=== PATIENT | male | born 1950 | race African-American/Black ===

== ENCOUNTER 2017-09-26 09:44 | Emergency (ER) | payer MEDICARE ==
[2017-09-26 09:57] LABS: BASOPHILS 0.7 % (0-2); EOSINOPHILS 2.4 % (0-7); HEMATOCRIT 29.8 % (42.0-54.0); HEMOGLOBIN 10.1 g/dL (13.5-17.5); IMMATURE GRANULOCYTES 0.3 % (0-5); LYMPHOCYTES 23.4 % (15-50); MCH 33.3 pg (26.0-34.0); MCHC 33.9 g/dL (31.0-37.0); MCV 98.3 fL (80.0-100.0); MONOCYTES 10.4 % (2-11); NEUTROPHILS 62.8 % (40-80); PLATELET COUNT 390 10x3/uL (130-400); RBC 3.03 10x6/uL (4.20-6.10); RDW 13.3 % (11.5-14.5)
[2017-09-26 10:09] LABS: APTT 29.3 SECONDS (22.8-39.4); INR 1.01 (0.85-1.17); PROTIME 12.9 SECONDS (11.6-15.0)
[2017-09-26 10:16] LABS: ALBUMIN 3.6 g/dL (3.4-5.0); ANION GAP 14.7 mmol/L (8-16); BILIRUBIN - TOTAL 0.21 mg/dL (0.2-1.3); CALCIUM 9.2 mg/dL (8.5-10.1); CREATININE - SERUM 1.6 mg/dL (0.6-1.3); POTASSIUM - SERUM 3.7 mmol/L (3.5-5.1); PROTEIN - SERUM 7.9 g/dL (6.4-8.2)
== END 2017-09-26 12:26 | disposition short-term general hospital (02) ==
LOC: D.ER 09:44
PROVIDERS: Emergency Medicine
DX: I63.9 Cerebral infarction, unspecified (principal); F17.200 Nicotine dependence, unspecified, uncomplicated

== ENCOUNTER 2017-11-21 15:55 | Emergency (ER) | payer MEDICARE | END 2017-11-21 20:12 | disposition home or self-care (01) | LOC: D.ER 15:55 | DX: I95.9 Hypotension, unspecified (principal); Z86.73 Personal history of transient ischemic attack (TIA), and cerebral infarction without residual deficits ==

== ENCOUNTER 2017-12-09 20:46 | Inpatient (IN) | payer MEDICARE ==
[~2017-12-09] VITALS: Ht 170.2 cm; Wt 70.3 kg
[2017-12-09 21:20] LABS: BASOPHILS 0.4 % (0-2); EOSINOPHILS 2.5 % (0-7); HEMATOCRIT 27.9 % (42.0-54.0); HEMOGLOBIN 9.3 g/dL (13.5-17.5); IMMATURE GRANULOCYTES 0.4 % (0-5); LYMPHOCYTES 36.3 % (15-50); MCH 30.5 pg (26.0-34.0); MCHC 33.3 g/dL (31.0-37.0); MCV 91.5 fL (80.0-100.0); MEAN PLATELET VOLUME 8.6 fL (7.4-10.4); MONOCYTES 7.7 % (2-11); NEUTROPHILS 52.7 % (40-80); RBC 3.05 10x6/uL (4.20-6.10); RDW 14.1 % (11.5-14.5)
[2017-12-09 21:20] LABS: APPEARANCE CLOUDY (CLEAR); BILIRUBIN NEGATIVE (NEGATIVE); COLOR YELLOW (YELLOW); GLUCOSE NEGATIVE (NEGATIVE); KETONE NEGATIVE (NEGATIVE); NITRITE NEGATIVE (NEGATIVE); PROTEIN 2+ mg/dL (NEGATIVE); SPECIFIC GRAVITY 1.025 (1.005-1.020); UROBILINOGEN NORMAL (NORMAL)
[2017-12-09 21:21] LABS: PLATELET COUNT 510 10x3/uL (130-400)
[2017-12-09 21:26] LABS: AMORPHOUS SEDIMENT >1+ /lpf (NONE SEEN); BACTERIA MODERATE /hpf (NONE SEEN); EPITHELIAL CELLS 0-5 /hpf (0-5); GRANULAR CAST 0-5 /lpf (NONE SEEN); HYALINE CAST OCC /lpf (NONE SEEN)
[2017-12-09 21:32] LABS: ALBUMIN 3.4 g/dL (3.4-5.0); ANION GAP 24.7 mmol/L (8-16); BILIRUBIN - TOTAL 0.25 mg/dL (0.2-1.3); CALCIUM 9.7 mg/dL (8.5-10.1); CARBON DIOXIDE 16.6 mmol/L (21.0-32.0); POTASSIUM - SERUM 3.3 mmol/L (3.5-5.1); PROTEIN - SERUM 7.9 g/dL (6.4-8.2)
[2017-12-09 21:50] LABS: T4 THYROXIN - FREE 0.8 ng/dL (0.76-1.46); THYROID STIMULATING HORMONE 3.93 uIU/mL (0.36-3.74)
[2017-12-10 02:15] VITALS: BP 159/94
[2017-12-10 03:54] VITALS: BP 159/94; BMI 24.3
[2017-12-10 04:39] VITALS: BP 159/94
[2017-12-10 05:59] LABS: BASOPHILS 0.2 % (0-2); EOSINOPHILS 0 % (0-7); HEMOGLOBIN 9.4 g/dL (13.5-17.5); IMMATURE GRANULOCYTES 0.2 % (0-5); LYMPHOCYTES 8.4 % (15-50); MCH 29.8 pg (26.0-34.0); MCHC 33.6 g/dL (31.0-37.0); MEAN PLATELET VOLUME 9.3 fL (7.4-10.4); MONOCYTES 11.9 % (2-11); NEUTROPHILS 79.3 % (40-80); PLATELET COUNT 498 10x3/uL (130-400); RBC 3.15 10x6/uL (4.20-6.10)
[2017-12-10 06:01] LABS: MCV 88.9 fL (80.0-100.0)
[2017-12-10 06:10] LABS: ANION GAP 17.7 mmol/L (8-16); CREATININE - SERUM 1.8 mg/dL (0.6-1.3); POTASSIUM - SERUM 3.7 mmol/L (3.5-5.1)
[2017-12-10 09:52] VITALS: BP 152/112
[2017-12-10] MEDS ORDERED: LIPITOR40 MG PO (10:06)
[2017-12-10] MEDS ORDERED: PROCARDIA10 MG PO (10:19)
[2017-12-10] MEDS ORDERED: KEPPRA500 MG PO (10:20)
[2017-12-10] MEDS ORDERED: HYDROCHLOROTHIA50 MG PO (10:20)
[2017-12-10] MEDS ORDERED: ZESTRIL40 MG PO (10:21)
[2017-12-10] MEDS ORDERED: METOPROLOL TART50 MG PO (10:21)
[2017-12-10 13:22] VITALS: BMI 24.2
[2017-12-10 13:42] VITALS: Ht 170.2 cm; Wt 70.3 kg
[2017-12-10 14:54] VITALS: BP 163/87
[2017-12-10 18:48] VITALS: BP 165/81
[2017-12-11 01:35] VITALS: BP 139/75
[2017-12-11 04:00] VITALS: BP 153/87
[2017-12-11 09:30] VITALS: BP 168/88
[2017-12-11 13:27] VITALS: BP 163/95
[2017-12-11 15:53] VITALS: BP 171/99
[2017-12-11 20:00] VITALS: BP 166/98
[2017-12-12 04:00] VITALS: BP 185/99
[2017-12-12 09:35] VITALS: BP 181/101
[2017-12-12 15:30] VITALS: BP 174/91
[2017-12-12 20:00] VITALS: BP 175/99
[2017-12-13 04:00] VITALS: BP 164/87
[2017-12-13 08:35] VITALS: BP 154/90
[2017-12-13 12:49] VITALS: BP 164/95
== END 2017-12-13 12:30 | DRG 101 ==
LOC: D.ER 20:46 → D.MS 23:33 → D.EDHOLD 23:33 → D.MS 23:45
PROVIDERS: Family Medicine
DX: G40.909 Epilepsy, unspecified, not intractable, without status epilepticus (principal); R00.0 Tachycardia, unspecified; R13.10 Dysphagia, unspecified; Z86.73 Personal history of transient ischemic attack (TIA), and cerebral infarction without residual deficits; Z91.128 Patient's intentional underdosing of medication regimen for other reason

== ENCOUNTER → 2018-02-21 18:02 | Outpatient (CLI) | payer MEDICARE ==
[2017-12-10 13:42] VITALS: BMI 24.3
[~2018-02-21 18:02] MED LIST: HYDROCHLOROTHIA50 MG PO; KEPPRA500 MG PO; LIPITOR40 MG PO; METOPROLOL TART50 MG PO; PROCARDIA10 MG PO; ZESTRIL40 MG PO
== END | disposition home or self-care (01) ==
LOC: D.LABREF 18:02
DX: G40.909 Epilepsy, unspecified, not intractable, without status epilepticus (principal)